=== PATIENT | male | born 1935 | race Caucasian/White ===

== ENCOUNTER → 2017-02-11 | Outpatient (CLI) | payer MEDICARE ==
[~2017-02-11] VITALS: Ht 175.3 cm; Wt 88.6 kg
[~2017-02-11] MED LIST: ASPI-558 PO; INSU100C11 SQ; METF-200 PO; REGADENOSON 0.4mg/5ml INJECTION IV ONE; REPA1TAB PO; SALINE FLUSH 10ml SYRINGE ONE; SIMV20TA89 PO
--- NOTE | 2017-02-13 10:19 | ESTF ---
PHARMACOLOGICAL LOW-LEVEL EXERCISE STRESS NUCLEAR SCAN DATE 02/11/[address] Oni العراقي INDICATION Atypical chest pain in patient with prior CABG, a drug-eluting stent to the saphenous vein graft to the obtuse marginal branch one year ago. 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 The patient was unable to fully exercise on the treadmill today due to PAD and an arthritic knee. PROCEDURE He underwent injection of technetium-99m Myoview dose of 12 mCi, Lexiscan dose of 0.4 mg followed by technetium-99m Myoview dose of 27.3 mCi. Stress and rest perfusion images were obtained per protocol. The patient had no complaints of angina or dyspnea. Blood pressure was 193/76, heart rate of 73 beats per minute at rest. Heart rate went up to 97 beats per minute, which is 73%. Blood pressure modestly dropped to 164/70 mmHg. No reported angina. Rest EKG shows a sinus rhythm, nonspecific intraventricular conduction delay, 114 milliseconds. During the stress phase, there was no ST depression or elevation diagnostic of ischemia. Occasional PVCs were present in recovery. Stress and rest perfusion images show mildly reduced uptake in the inferior wall which appears a little more prominent on rest images as compared with stress images consistent with diaphragmatic tissue attenuation artifact. Gated images show normal wall motion, normal contractility, normal LV ejection fraction measured 52% on stress images and 60% on rest images. IMPRESSION: Pharmacological low-level exercise stress nuclear scan clinically, electrically and scintigraphically negative for ischemia with evidence mild diaphragmatic tissue attenuation artifact but normal LV ejection fraction. MTDD
== END ==
LOC: IMA 08:12
PROVIDERS: ATTEND Internal Medicine Cardiovascular Disease
DX: R07.9 Chest pain, unspecified (principal)
CPT/HCPCS: 78452; 93017; A9502; J2785